=== PATIENT | female | born 1975 | race Caucasian/White ===

== ENCOUNTER 2019-12-07 16:49 | Observation (INO) | payer OTHER, SELFPAY ==
[2019-12-07] MEDS ORDERED: SODIUM CHLORIDE 0.9% IVPB SCH (18:15)
[2019-12-07] MEDS ORDERED: ACYCLOVIR SODIUM IVPB SCH (18:15)
[2019-12-07] MEDS ORDERED: Morphine 4 MG/ML VIAL ONE (18:27)
[2019-12-07] MEDS ORDERED: methylPREDNISolone Sod Succ/PF 125 MG/2 ML VIAL ONE (18:27)
[2019-12-07] MEDS ORDERED: Magnesium 2 GM/50 ML BAG (IN WATER) ONE (18:27)
[2019-12-07] MEDS ORDERED: Acetaminophen 325 MG TAB PO PRN (19:12)
[2019-12-07] MEDS ORDERED: Calcium Carbonate 500 MG ChewTAB PO PRN (19:12)
--- NOTE | 2019-12-07 20:56 | HP ---
PRIMARY CARE PHYSICIAN: None. CHIEF COMPLAINT: Intractable headache. HISTORY OF PRESENT ILLNESS: The patient is a 44-year-old female with a past medical history of asthma and anemia, who presents to the ER for the above complaint. The patient reports that she has had headache for the last 5 days. She describes the headache as located at the front and on the top of her head, it has been constant, increasing in intensity over past several days. She describes the pain as a stabbing, shooting pain with associated nausea and vomiting and photophobia, exacerbated and relieved by nothing. She reports that she has had a headache like this several weeks ago while camping. She reports that she "fell out" while camping. After she regained consciousness, she did not seek any medical treatment and went about her daily life. She is not on any blood thinners. She denies any history of DVT or PE and is not taking any hormone therapy. She denies any history of unintentional weight loss or night sweats. She denies any recent fever or chills. She has no history of any IV drug use or risk for HIV. She denies any focal deficits, urinary retention or ataxia. For the following reasons, she went into the ER in [place]. In [place], the patient's vital signs were stable. EKG was sinus arrythmia, [address] of the brain showed diffuse sulci effacement. Further evaluation by brain MRI is recommended. The patient's white count was 11.2. She had a potassium of 3.3. The patient was given vancomycin and Rocephin and headache protocol of Benadryl, Toradol, Compazine, and morphine and was transferred to the ER in [place]. In the ER in [place], Neurosurgery was consulted to determine if IV steroids were appropriate, which neurosurgery was fine with starting. The patient was given Solu-Medrol 125 mg IV push, was started on acyclovir IV, was given 2 g of Mag and will be admitted to the floor. PAST MEDICAL HISTORY: 1. Asthma. 2. Anemia. PAST SURGICAL HISTORY: 1. Cholecystectomy. 2. x2. SOCIAL HISTORY: The patient lives with her family at home. She drinks alcohol socially. She has no history of smoking or illicit drug use. FAMILY HISTORY: Noncontributory to this case. ALLERGIES: NO KNOWN DRUG ALLERGIES. HOME MEDICATIONS: None. REVIEW OF SYSTEMS: All review of systems are negative unless otherwise stated in the HPI. PHYSICAL EXAMINATION: VITAL SIGNS: Temperature 98.4, blood pressure 153/79, heart rate 95, respirations 20, and 100% on room air. Pain 10/10. CONSTITUTIONAL: The patient is alert and oriented to person, place, and time. She appears uncomfortable, nontoxic in appearance. HEAD: Atraumatic and normocephalic. EYES: PERRLA. Extraocular muscles intact. Sclerae nonicteric. ENT: EACs clear bilaterally. TMs intact bilaterally. Nares patent bilaterally. No rhinorrhea or otorrhea. Oropharynx is clear. Uvula midline. Moist mucous membranes. No oral lesions. NECK: Soft and supple. Trachea midline. No cervical tenderness. No neck stiffness. Full range of motion. No cervical adenopathy. RESPIRATIONS: Respirations are even and nonlabored. No rhonchi, wheezes, or rales. CARDIOVASCULAR: S1 and S2 appreciated. No murmurs, rubs, or gallops. ABDOMEN: Soft and nontender. Active bowel sounds. No guarding. No rigidity. No rebound tenderness. Negative Rovsing sign. Negative Breaux sign. BACK: No central spinous tenderness. No CVA tenderness. Full range of motion. EXTREMITIES: Upper extremities; range of motion normal. Strength normal. Sensation intact. Palpable radial pulses. Lower extremities; full range of motion. Strength normal. Sensation normal. Palpable pedal pulses. No edema. NEUROLOGIC: Cranial nerves 2 through 12 intact. No focal deficits. Normal gait. Negative Kernig sign. Negative Brudzinski sign. PSYCHIATRIC: Normal affect. The patient is alert and oriented to person, place and time. LABS AND DIAGNOSTICS: CT of the brain was positive for diffuse sulcal effacement. Recommended brain MRI as followup. Sodium 141, potassium 3.3, chloride of 111, CO2 of 13, BUN 10, creatinine 0.82, glucose 143. Total bilirubin 0.2, AST 18, ALT 12, alkaline phosphatase 69, albumin 4.6, lipase 4. WBCs were 11.2, hemoglobin 9.1, hematocrit 32.1, and platelets 504. IMPRESSION AND PLAN: 1. Intractable headache. We will admit the patient to medical floor observation status. Expected length of stay less than 2 midnights. The patient presented with an intractable headache x5 days with some nausea, vomiting, and photophobia. The patient was given headache protocol in the ER in [place] with no relief of symptoms. CT was performed and showed diffuse sulcal effacement. Recommend MRI for followup. Neurosurgery was consulted in the ER and recommended steroids ___. The patient has been given vancomycin, Rocephin, and acyclovir IV. The patient is afebrile. We will continue vancomycin, Rocephin, and acyclovir as broad- spectrum coverage until meningitis is ruled out. We will place the patient on contact precautions and droplet precautions until COVID is rule out. COVID results are pending. We will give IV fluids. We will continue analgesic p.r.n. We will consult Neurology. We will perform neuro checks q.4. We will maintain head above bed greater than 30 degrees. We will order an MRI of the brain. 2. Nausea and vomiting, likely related to problem #1. Upon assessment, symptoms were resolved with Zofran. We will continue Zofran p.r.n. 3. Suspected COVID. The patient denies any COVID contacts. COVID test is pending. We will place on droplet precautions. 4. Hypokalemia. The patient presented with a potassium of 3.3, mild. We will continue IV fluids. We will recheck level in the a.m. 5. Asthma. The patient denies any respiratory symptoms, is not in any respiratory distress at this time. We will add p.r.n. medications as needed. 6. Anemia, chronic, appears stable at this time. The patient's hemoglobin was 9.1 and hematocrit was 32.1. We will recheck CBC in the a.m. 7. SCDs for deep venous thrombosis prophylaxis. No pharmacoprophylaxis for DVT. Pepcid for gastrointestinal prophylaxis. The patient is a full code. Discussed the case with Dr. Hale. Job ID: [id number] [facility]
[2019-12-07 21:56] VITALS: BMI 33.0
[2019-12-07] MEDS: Sodium Chloride 0.9% 1,000 ML IV SCH (22:36)
[2019-12-07] MEDS: Famotidine/PF 20 mg/2ml Vial SLOW IVP SCH (22:37)
[2019-12-07] MEDS: Famotidine 20 MG TAB PO SCH (22:37)
[2019-12-07] MEDS: HYDROcodone/Acetaminophen 5/325 mg Tablet PO PRN (22:38)
[2019-12-08] MEDS: Ketorolac Tromethamine 30 MG/ML VIAL IVP PRN ×2 (01:55→08:14)
[2019-12-08] MEDS: Ondansetron ODT 4 MG TAB PO PRN (01:55)
[2019-12-08] MEDS: Vancomycin 1.5 GRAM/300 ML BAG 1.5 GM in Premix Bag 1 BAG IVPB SCH ×2 (03:17→16:56)
[2019-12-08] MEDS: Acyclovir Sodium 570 MG in Sodium Chloride 0.9% 100 ML IVPB SCH ×3 (05:00→21:37)
[2019-12-08 06:50] LABS: #Lymphocytes 0.6 thou/uL (1.20-3.40); #Monocytes 0.2 thou/uL (0.11-0.59); #Neutrophils 7.6 thou/uL (1.40-6.50); %Basophils 0.1 % (0.0-1.0); %Eosinophils 0.1 % (0.0-10.0); %Lymphocytes 6.8 % (21.0-51.0); %Monocytes 2.1 % (0.0-10.0); Hemoglobin 7.6 g/dL (12.0-16.0); Mean Corpuscular HGB CONC 29.9 g/dL (32.0-36.0); Mean Corpuscular Hemoglobin 21.8 pg (27.0-31.0); Mean Corpuscular Volume 72.9 fL (78.0-98.0); Mean Platelet Volume 7.2 fL (7.4-10.4); Platelet Count 405 thou/uL (130-400); Red Blood Cell (RBC) Count 3.49 mill/uL (4.20-5.40); White Blood Cell (WBC) Count 8.4 thou/uL (4.8-10.8)
[2019-12-08 07:05] LABS: Anion Gap 13 mmol/L (10-20); BUN (Urea Nitrogen) 9 mg/dL (7.0-18.7); Calc. Creatinine Clearance 143 mL/min (70-130); Calcium 7.8 mg/dL (7.8-10.44); Carbon Dioxide 15 mmol/L (22-29); Chloride 112 mmol/L (98-107); Estimated GFR-MDRD 87; Glucose 122 mg/dL (70-105); Potassium 3.7 mmol/L (3.5-5.1); Sodium 136 mmol/L (136-145)
[2019-12-08] MEDS ORDERED: cefTRIAXone\\ROCEPHIN 2 GM in Sodium Chloride 0.9% 100 ML IVPB SCH ×2 (07:30→16:00)
[2019-12-08 08:06] LABS: Hypochromia MODERATE=16-30 cells (100X) (0-5/hpf); MDiff Complete? YES; Microcytosis MODERATE=15-30 cells (100X) (0-5/hpf); Ovalocytes SLIGHT = 2-5 cells (100X) (0-1/hpf); Platelet Morphology Comment Appears Increased; Polychromasia SLIGHT = 2-3 cells (100X) (0-2/hpf); Reflex for Review?? NO
[2019-12-08] MEDS: Famotidine/PF 20 mg/2ml Vial SLOW IVP SCH (08:11)
[2019-12-08] MEDS: HYDROcodone/Acetaminophen 5/325 mg Tablet PO PRN ×3 (08:15→17:05)
[2019-12-08] MEDS ORDERED: methylPREDNISolone Sod Succ 40 MG VIAL IVP SCH (09:00)
[2019-12-08] MEDS: Famotidine 20 MG TAB PO SCH (09:36)
[2019-12-08] MEDS ORDERED: Morphine 4 MG/ML VIAL SLOW IVP PRN (10:27)
--- NOTE | 2019-12-08 10:50 | PDOC.HOSPP ---
- Subjective Encounter Date: 12/08/19 (f/u intractable headache) Encounter Time: 10:48 Subjective: Pt reports feeling miserable - nausea, worsening headache pain with any movement. - Objective Vital Signs & Weight: Vital Signs (12 hours) Temp Pulse Resp BP Pulse Ox 12/08/19 08:20 98.5 F 98 20 155/74 H 100 12/08/19 03:00 98.1 F 92 18 142/77 H 99 Weight Weight 198 lb 10.184 oz I&O: 12/07/19 12/08/19 12/09/19 06:59 06:59 06:59 Intake Total 1850 Balance 1850 Result Diagrams: 12/08/19 06:39 12/08/19 06:39 Hospitalist ROS - Medication Medications: Active Medications Generic Name Dose Route Start Last Admin Trade Name Freq PRN Reason Stop Dose Admin Hydrocodone Bitart/Acetaminophen 2 tab 12/07/19 19:12 12/08/19 08:15 [place] 5/325 PO 2 tab Q4H PRN Administration Severe Pain (7-10) Sodium Chloride 1,000 mls @ 75 mls/hr 12/07/19 19:15 12/07/19 22:36 Normal Saline 0.9% IV 1,000 mls .[id number] SAAD Administration Vancomycin HCl 1.5 gm/ Device 300 mls @ 200 mls/hr 12/08/19 04:00 12/08/19 03 :17 IVPB 300 mls 0400,1600 SAAD Administration Acyclovir Sodium 570 mg/ 111.4 mls @ 111.4 mls/hr 12/08/19 06:00 12/08/19 05: 00 Sodium Chloride IVPB 111.4 mls Q8HR SAAD Administration Ketorolac Tromethamine 15 mg 12/07/19 19:23 12/08/19 08:14 Toradol IVP 12/12/19 19:24 15 mg Q6H PRN Administration Moderate Pain (4-6) Methylprednisolone Sodium Succinate 40 mg 12/08/19 09:00 12/08/19 08:10 Solu-Medrol IVP 40 mg DAILY SAAD Administration Ondansetron HCl 4 mg 12/07/19 19:12 12/08/19 01:55 Zofran Odt PO 4 mg Q6H PRN Administration Nausea/Vomiting - Exam General - other findings: appears uncomfortable with ice pack over face Heart: RRR, no murmur Respiratory: CTAB, no wheezes, no rales, no ronchi Gastrointestinal: soft, non-tender, non-distended, normal bowel sounds Extremities: no cyanosis, no clubbing, no edema Neurological: no focal deficits Hosp A/P (1) Cerebral edema Code(s): G93.6 - CEREBRAL EDEMA Status: Acute (2) Intractable headache Code(s): R51 - HEADACHE Status: Acute Qualifiers: Headache type: unspecified Headache chronicity pattern: acute headache Qualified Code(s): R51 - Headache (3) Anemia Code(s): D64.9 - ANEMIA, UNSPECIFIED Status: Chronic Qualifiers: Anemia type: unspecified type Qualified Code(s): D64.9 - Anemia, unspecified (4) Asthma Code(s): J45.909 - UNSPECIFIED ASTHMA, UNCOMPLICATED Status: Chronic - Plan Cerebral edema and intractable headache/n - - Appreciate Neurology consult - obtain recs for managing headache - COVID test pending - MRI delayed until COVID resulted - must be negative for pt to receive this - continue antibiotics and antivirals - continue steroids - morphine dose and frequency adjusted for better pain control Asthma - no signs of exacerbation - prn albuterol Anemia - chronic - obtain type and screen and monitor. Transfuse to maintain >7 dvt prophy - lovenox gi prophy - protonix while on steroids code status full reviewed plan of care with patient, no questions or further needs at end of eval Obtained medications from Neurologist: - solumedrol 1 gram IV Q24h - gabapentin 100 mg TID - compazine 10 mg IV, benadryl 25 mg IV, toradol 15 mg IV - all q6h x 4 doses meds ordered with higher dose of solumedrol to start today.
[2019-12-08] MEDS: Ondansetron PF 4 MG/2 ML Vial IVP PRN ×2 (11:00→17:05)
[2019-12-08] MEDS ORDERED: methylPREDNISolone Sod Succ/PF 125 MG/2 ML VIAL IVP SCH (11:30)
[2019-12-08] MEDS: Sodium Chloride 0.9% 1,000 ML IV SCH ×2 (11:44→23:53)
[2019-12-08] MEDS ORDERED: methylPREDNISolone Sod Succ 1,000 MG in Sodium Chloride 0.9% 100 ML IVPB SCH (12:00)
[2019-12-08] MEDS ORDERED: Ketorolac Tromethamine 30 MG/ML VIAL IVP SCH (12:00)
--- NOTE | 2019-12-08 12:19 | CON ---
NEUROLOGY CONSULTATION DATE OF CONSULTATION: 12/08/2019 REASON FOR CONSULTATION: Intractable headache. HISTORY OF PRESENT ILLNESS: Ms. Petty is a 44-year-old female with history significant for anemia and asthma, presented to the emergency room with severe headache since the last 5 days. The patient describes the headache as severe ice-pick stabbing headache that is located mostly on the top of her head and frontal pain associated with nausea, vomiting, and photophobia. Per the patient, she had headache several weeks ago also while camping. She reports she fell out during camping and did not regain conscious, but she did not come to the ER to get evaluated. The patient denies focal weakness, dizziness, vertigo, loss of consciousness, loss of vision, chest pain, abdominal pain associated with the headache. In the emergency room, head CT was done, which shows diffuse sulcal effacement, concerning for cerebral edema. The patient is currently COVID rule out, so further imaging could not be done. She already received vancomycin and Rocephin to cover for infection, Benadryl, Compazine, Toradol, morphine, but continues to have headache, which she rates it as 10/10, stabbing, ice pick like, not relieved by the current management. REVIEW OF SYSTEMS: All 14 systems were reviewed and were negative except the pertinent positives and negatives mentioned in the HPI. PAST MEDICAL HISTORY: Asthma, anemia. PAST SURGICAL HISTORY: Cholecystectomy, she had section x2. SOCIAL HISTORY: The patient lives at home with family. Drinks alcohol occasionally. Denies smoking, illegal drug use. FAMILY HISTORY: No family history of migraines. ALLERGIES: NO KNOWN DRUG ALLERGIES. HOME MEDICATIONS: None. - Objective Vital Signs & Weight: Vital Signs (12 hours) Temp Pulse Resp BP Pulse Ox 12/08/19 08:20 98.5 F 98 20 155/74 H 100 12/08/19 03:00 98.1 F 92 18 142/77 H 99 Weight Weight 198 lb 10.184 oz I&O: 12/07/19 12/08/19 12/09/19 06:59 06:59 06:59 Intake Total 1850 Balance 1850 Active Medications Generic Name Dose Route Start Last Admin Trade Name Freq PRN Reason Stop Dose Admin Hydrocodone Bitart/Acetaminophen 2 tab 12/07/19 19:12 12/08/19 08:15 [place] 5/325 PO 2 tab Q4H PRN Administration Severe Pain (7-10) Sodium Chloride 1,000 mls @ 75 mls/hr 12/07/19 19:15 12/07/19 22:36 Normal Saline 0.9% IV 1,000 mls .[id number] SAAD Administration Vancomycin HCl 1.5 gm/ Device 300 mls @ 200 mls/hr 12/08/19 04:00 12/08/19 03 :17 IVPB 300 mls 0400,1600 SAAD Administration Acyclovir Sodium 570 mg/ 111.4 mls @ 111.4 mls/hr 12/08/19 06:00 12/08/19 05: 00 Sodium Chloride IVPB 111.4 mls Q8HR SAAD Administration Ketorolac Tromethamine 15 mg 12/07/19 19:23 12/08/19 08:14 Toradol IVP 12/12/19 19:24 15 mg Q6H PRN Administration Moderate Pain (4-6) Methylprednisolone Sodium Succinate 40 mg 12/08/19 09:00 12/08/19 08:10 Solu-Medrol IVP 40 mg DAILY SAAD Administration Ondansetron HCl 4 mg 12/07/19 19:12 12/08/19 01:55 Zofran Odt PO 4 mg Q6H PRN Administration Nausea/Vomiting PHYSICAL EXAMINATION: General - other findings: appears uncomfortable with ice pack over face Heart: RRR, no murmur Respiratory: CTAB, no wheezes, no rales, no ronchi Gastrointestinal: soft, non-tender, non-distended, normal bowel sounds Extremities: no cyanosis, no clubbing, no edema Neurological: Mental status; the patient is alert and oriented to person, place , and time. Speech is clear. Fund of knowledge is appropriate. Recent and remote memory, intact. Cranial nerves 2 through 12 intact. Motor; muscle tone and bulk are normal. Strength 5/5 bilaterally. Sensory intact. Cerebellar, finger-nose testing intact. Gait deferred due to the patient's safety reasons. A/P (1) Cerebral edema Code(s): G93.6 - CEREBRAL EDEMA Status: Acute (2) Intractable headache Code(s): R51 - HEADACHE Status: Acute Qualifiers: Headache type: unspecified Headache chronicity pattern: acute headache Qualified Code(s): R51 - Headache (3) Anemia Code(s): D64.9 - ANEMIA, UNSPECIFIED Status: Chronic Qualifiers: Anemia type: unspecified type Qualified Code(s): D64.9 - Anemia, unspecified (4) Asthma Code(s): J45.909 - UNSPECIFIED ASTHMA, UNCOMPLICATED Status: Chronic DIAGNOSTIC STUDIES: Data reviewed. I reviewed the head CT, which was consistent with diffuse sulcal effacement, consistent with cerebral edema. Labs were essentially unremarkable. ASSESSMENT AND PLAN: Ms. Rosie Anderson is consulted for severe headache. Head CT was reviewed, which was consistent with diffuse sulcal effacement. Followup MRI brain is recommended, which is currently on hold due to COVID rule out until the results are available. Neurosurgery on-board, recommendations appreciated. Consider starting her on the following regimen to see if that will abort the intractable headache. Solu-Medrol 1 g IV q.24 hours, Toradol 15 mg IV q.6 hours, Benadryl 25 mg IV q.6 hours, Compazine 10 mg IV q.6 hours, all IV dosage should be scheduled for the next 24 hours. Consider starting gabapentin 100 mg p.o. t.i.d. for headache prophylaxis. Avoid narcotics as she can develop tolerance and rebound headaches. Neuro checks every 4 hours. Continue medical management per primary team. We will continue to follow. Thank you for the consult. Job ID: [id number] [facility]TDD
[2019-12-08 12:27] LABS: SARS-CoV-2 MS2 Positive; SARS-CoV-2 N Gene Negative; SARS-CoV-2 S Gene Negative; SARS-CoV-2 orf1ab Negative
[2019-12-08] MEDS: diphenhydrAMINE 50 MG/ML VIAL IVP SCH ×3 (12:47→23:54)
[2019-12-08] MEDS: Prochlorperazine Edisylate 10 MG in Sodium Chloride 0.9% 50 ML IVPB SCH ×3 (12:48→23:54)
[2019-12-08] MEDS: methylPREDNISolone Sod Succ 1,000 MG in Sodium Chloride 0.9% 250 ML 250 ML IVPB SCH (13:22)
[2019-12-08] MEDS: Ketorolac Tromethamine 30 MG/ML VIAL IVP SCH ×2 (14:26→19:52)
[2019-12-08] MEDS: Gabapentin 100 MG CAP PO SCH ×2 (14:27→21:37)
--- NOTE | 2019-12-08 14:37 | MRI ---
MRI BRAIN WITH AND WITHOUT IV CONTRAST: HISTORY: Cerebral edema. Abnormal CT scan. Rule out meningitis COMPARISON: None CORRELATION:12/07/2019 FINDINGS: No restricted diffusion is seen. No evidence of infarct, hemorrhage, mass, midline shift or abnormal extra-axial fluid collections is noted. No abnormal postcontrast enhancement is seen. The ventricular size is appropriate and the basilar cisterns are patent. No signal abnormalities are seen on the highly sensitive FLAIR or gradient echo sequences. An empty sella is seen.The visualized paranasal sinuses and mastoid air cells are well aerated. IMPRESSION: No evidence of acute intracranial process or mass.
[2019-12-08] MEDS ORDERED: Magnevist 469MG/ML 20 ML VIAL ONE (16:39)
[2019-12-08] MEDS: cefTRIAXone\\ROCEPHIN 2 GM in Sodium Chloride 0.9% 100 ML IVPB SCH (19:55)
[2019-12-09] MEDS: Ketorolac Tromethamine 30 MG/ML VIAL IVP SCH ×2 (01:56→08:43)
[2019-12-09] MEDS: Vancomycin 1.5 GRAM/300 ML BAG 1.5 GM in Premix Bag 1 BAG IVPB SCH (04:01)
[2019-12-09 04:10] LABS: #Lymphocytes 0.8 thou/uL (1.20-3.40); #Monocytes 0.2 thou/uL (0.11-0.59); #Neutrophils 6.3 thou/uL (1.40-6.50); %Basophils 0.1 % (0.0-1.0); %Eosinophils 0.2 % (0.0-10.0); %Lymphocytes 11.3 % (21.0-51.0); %Monocytes 2.7 % (0.0-10.0); %Neutrophils 85.7 % (42.0-75.0); Hemoglobin 7.4 g/dL (12.0-16.0); Mean Corpuscular HGB CONC 30.8 g/dL (32.0-36.0); Mean Corpuscular Hemoglobin 22.3 pg (27.0-31.0); Mean Corpuscular Volume 72.6 fL (78.0-98.0); Mean Platelet Volume 8.1 fL (7.4-10.4); Platelet Count 380 thou/uL (130-400); RBC Distribution Width 19.2 % (11.5-14.5); Red Blood Cell (RBC) Count 3.32 mill/uL (4.20-5.40); White Blood Cell (WBC) Count 7.4 thou/uL (4.8-10.8)
[2019-12-09 04:30] LABS: Anion Gap 11 mmol/L (10-20); BUN (Urea Nitrogen) 13 mg/dL (7.0-18.7); Calc. Creatinine Clearance 129 mL/min (70-130); Calcium 8.2 mg/dL (7.8-10.44); Carbon Dioxide 18 mmol/L (22-29); Chloride 112 mmol/L (98-107); Estimated GFR-MDRD 78; Glucose 133 mg/dL (70-105); Potassium 3.8 mmol/L (3.5-5.1); Sodium 137 mmol/L (136-145)
[2019-12-09] MEDS: Ondansetron PF 4 MG/2 ML Vial IVP PRN (04:36)
[2019-12-09] MEDS: Prochlorperazine Edisylate 10 MG in Sodium Chloride 0.9% 50 ML IVPB SCH (05:48)
[2019-12-09] MEDS: diphenhydrAMINE 50 MG/ML VIAL IVP SCH (05:49)
[2019-12-09] MEDS ORDERED: Vancomycin 1.5 GRAM/300 ML BAG 1.5 GM in Premix Bag 1 BAG IVPB SCH ×2 (06:00→12:00)
[2019-12-09] MEDS: Acyclovir Sodium 570 MG in Sodium Chloride 0.9% 100 ML IVPB SCH ×2 (06:23→14:45)
[2019-12-09] MEDS: cefTRIAXone\\ROCEPHIN 2 GM in Sodium Chloride 0.9% 100 ML IVPB SCH (08:42)
[2019-12-09] MEDS: Ondansetron ODT 4 MG TAB PO PRN ×3 (08:44→20:53)
[2019-12-09] MEDS: Gabapentin 100 MG CAP PO SCH ×3 (08:45→20:38)
--- NOTE | 2019-12-09 09:17 | PDOC.HOSPP ---
- Subjective Encounter Date: 12/09/19 Encounter Time: 11:30 Subjective: Patient with improvement in headache, down to 4-5/10 from 03/18 yesterday. Best if she lays down, covers her eyes, and doesn't move. Denies focal neuro symptoms. - Objective Vital Signs & Weight: Vital Signs (12 hours) Temp Pulse Resp BP Pulse Ox 12/09/19 04:03 97.9 F 74 20 153/77 H 99 12/08/19 23:48 98.2 F 77 18 150/75 H 97 Weight Weight 198 lb 10.184 oz I&O: 12/08/19 12/09/19 12/10/19 06:59 06:59 06:59 Intake Total 1850 4022 Balance 1850 4022 Result Diagrams: 12/09/19 03:57 12/09/19 03:57 Hospitalist ROS - Review of Systems Constitutional: denies: fever, chills Respiratory: denies: cough, shortness of breath Cardiovascular: denies: chest pain, palpitations Gastrointestinal: denies: nausea, vomiting, abdominal pain Neurological: denies: weakness, numbness, incoordination, change in speech, confusion, seizures - Medication Medications: Active Medications Generic Name Dose Route Start Last Admin Trade Name Freq PRN Reason Stop Dose Admin Hydrocodone Bitart/Acetaminophen 2 tab 12/07/19 19:12 12/08/19 17:05 [place] 5/325 PO 2 tab Q4H PRN Administration Severe Pain (7-10) Gabapentin 100 mg 12/08/19 15:00 12/09/19 08:45 Neurontin PO 100 mg TID SAAD Administration Sodium Chloride 1,000 mls @ 75 mls/hr 12/07/19 19:15 12/08/19 23:53 Normal Saline 0.9% IV 1,000 mls .[id number] SAAD Administration Acyclovir Sodium 570 mg/ 111.4 mls @ 111.4 mls/hr 12/08/19 06:00 12/09/19 06: 23 Sodium Chloride IVPB 111.4 mls Q8HR SAAD Administration Ceftriaxone Sodium 2 gm/ 100 mls @ 200 mls/hr 12/08/19 20:00 12/09/19 08:42 Sodium Chloride IVPB 100 mls 0800,2000 SAAD Administration Methylprednisolone Sodium 266 mls @ 266 mls/hr 12/08/19 12:00 12/08/19 13:22 Succinate 1,000 mg/ Sodium IVPB 266 mls Chloride Q24HR SAAD Administration Morphine Sulfate 2 mg 12/08/19 10:27 12/09/19 04:35 Morphine Sulfate SLOW IVP 2 mg Q2H PRN Administration Moderate Pain (4-6) Ondansetron HCl 4 mg 12/07/19 19:12 12/09/19 08:44 Zofran Odt PO 4 mg Q6H PRN Administration Nausea/Vomiting Ondansetron HCl 4 mg 12/07/19 19:12 12/09/19 04:36 Zofran IVP 4 mg Q6H PRN Administration Nausea/Vomiting Pantoprazole Sodium 40 mg 12/09/19 09:00 12/09/19 08:45 Protonix PO 40 mg DAILY ASAD Administration - Exam General Appearance: NAD, awake alert ENT: moist mucosa Heart: RRR, no murmur, no gallops, no rubs Respiratory: CTAB, no wheezes, no rales, no ronchi Gastrointestinal: soft, non-tender, non-distended, normal bowel sounds Neurological: no focal deficits Psychiatric: normal affect, normal behavior, A&O x 3 Hosp A/P (1) Cerebral edema Code(s): G93.6 - CEREBRAL EDEMA Status: Resolved (2) Intractable headache Code(s): R51 - HEADACHE Status: Acute Qualifiers: Headache type: unspecified Headache chronicity pattern: acute headache Qualified Code(s): R51 - Headache (3) Anemia Code(s): D64.9 - ANEMIA, UNSPECIFIED Status: Chronic Qualifiers: Anemia type: iron deficiency (4) Asthma Code(s): J45.909 - UNSPECIFIED ASTHMA, UNCOMPLICATED Status: Chronic - Plan Cerebral edema and intractable headache - - Appreciate Neurology consult - obtained recs for managing headache - COVID test negative - MRI showing no abnormalities or evidence of cerebral edema - continue antibiotics and antivirals - continue steroids - morphine dose and frequency adjusted for better pain control Asthma - no signs of exacerbation - prn albuterol Anemia - chronic - obtain type and screen and monitor. Transfuse to maintain >7 dvt prophy - lovenox gi prophy - protonix while on steroids code status full Obtained medications from Neurologist: - solumedrol 1 gram IV Q24h - gabapentin 100 mg TID - compazine 10 mg IV, benadryl 25 mg IV, toradol 15 mg IV - all q6h x 4 doses meds ordered with higher dose of solumedrol yesterday. ID consulted to see if concern for infectious eitiology, otherwise most likely complicated migraine
[2019-12-09 10:35] LABS: Iron 11 ug/dL (50-170); Iron Binding Capacity, Total 329 mcg/dL (265-497)
[2019-12-09] MEDS: HYDROcodone/Acetaminophen 5/325 mg Tablet PO PRN ×2 (12:10→17:33)
[2019-12-09] MEDS: methylPREDNISolone Sod Succ 1,000 MG in Sodium Chloride 0.9% 250 ML 250 ML IVPB SCH (12:14)
[2019-12-09] MEDS: Sodium Chloride 0.9% 1,000 ML IV SCH (13:48)
--- NOTE | 2019-12-09 13:48 | PDOC.HOSPP ---
- Subjective Encounter Date: 12/09/19 Subjective: Patient feels better. Headache 5/ but reports confusion. - Objective Vital Signs & Weight: Vital Signs (12 hours) Temp Pulse Resp BP BP Pulse Ox 12/09/19 08:20 97.8 F 74 18 153/81 H 95 12/09/19 04:03 97.9 F 74 20 153/77 H 99 Weight Weight 198 lb 10.184 oz I&O: 12/08/19 12/09/19 12/10/19 06:59 06:59 06:59 Intake Total 1850 4022 Balance 1850 4022 Result Diagrams: 12/09/19 03:57 12/09/19 03:57 Radiology Reviewed by me: Yes EKG Reviewed by me: Yes Hospitalist ROS - Review of Systems Constitutional: denies: fever, chills, sweats, weakness, malaise, other Eyes: denies: pain, vision change, conjunctivae inflammation, eyelid inflammation, redness, other ENT: reports: other (headache). denies: ear pain, ear discharge, nose pain, nose discharge, nose congestion, mouth pain, mouth swelling, throat pain, throat swelling Respiratory: denies: cough, dry, shortness of breath, hemoptysis, SOB with excertion, pleuritic pain, sputum, wheezing, other Cardiovascular: denies: chest pain, palpitations, orthopnea, paroxysmal noc. dyspnea, edema, light headedness, other Gastrointestinal: denies: nausea, vomiting, abdominal pain, diarrhea, constipation, melena, hematochezia, other Genitourinary: denies: dysuria, frequency, incontinence, hematuria, retention, other Musculoskeletal: denies: neck pain, shoulder pain, arm pain, back pain, hand pain, leg pain, foot pain, other Skin: denies: rash, lesions, miriam, bruising, other Neurological: denies: weakness, numbness, incoordination, change in speech, confusion, seizures, other - Medication Medications: Active Medications Generic Name Dose Route Start Last Admin Trade Name Freq PRN Reason Stop Dose Admin Hydrocodone Bitart/Acetaminophen 2 tab 12/07/19 19:12 12/08/19 17:05 [place] 5/325 PO 2 tab Q4H PRN Administration Severe Pain (7-10) Hydrocodone Bitart/Acetaminophen 1 tab 12/07/19 19:12 12/09/19 12:10 [place] 5/325 PO 1 tab Q4H PRN Administration Moderate Pain (4-6) Gabapentin 100 mg 12/08/19 15:00 12/09/19 08:45 Neurontin PO 100 mg TID SAAD Administration Sodium Chloride 1,000 mls @ 75 mls/hr 12/07/19 19:15 12/08/19 23:53 Normal Saline 0.9% IV 1,000 mls .[id number] SAAD Administration Acyclovir Sodium 570 mg/ 111.4 mls @ 111.4 mls/hr 12/08/19 06:00 12/09/19 06: 23 Sodium Chloride IVPB 111.4 mls Q8HR SAAD Administration Ceftriaxone Sodium 2 gm/ 100 mls @ 200 mls/hr 12/08/19 20:00 12/09/19 08:42 Sodium Chloride IVPB 100 mls 0800,2000 SAAD Administration Methylprednisolone Sodium 266 mls @ 266 mls/hr 12/08/19 12:00 12/09/19 12:14 Succinate 1,000 mg/ Sodium IVPB 266 mls Chloride Q24HR SAAD Administration Vancomycin HCl 1.5 gm/ Device 300 mls @ 200 mls/hr 12/09/19 12:00 12/09/19 12 :09 IVPB 300 mls 0400,1200,2000 SAAD Administration Morphine Sulfate 2 mg 12/08/19 10:27 12/09/19 04:35 Morphine Sulfate SLOW IVP 2 mg Q2H PRN Administration Moderate Pain (4-6) Ondansetron HCl 4 mg 12/07/19 19:12 12/09/19 08:44 Zofran Odt PO 4 mg Q6H PRN Administration Nausea/Vomiting Ondansetron HCl 4 mg 12/07/19 19:12 12/09/19 04:36 Zofran IVP 4 mg Q6H PRN Administration Nausea/Vomiting Pantoprazole Sodium 40 mg 12/09/19 09:00 12/09/19 08:45 Protonix PO 40 mg DAILY SAAD Administration - Exam General Appearance: awake alert Eye: PERRL ENT: normocephalic atraumatic Neck: supple Heart: RRR Respiratory: CTAB Gastrointestinal: soft Extremities: no cyanosis Skin: normal turgor Neurological: cranial nerve grossly intact, normal sensation to touch, no weakness, no focal deficits, no new deficit Musculoskeletal: normal tone, normal strength, no muscle wasting Psychiatric: normal affect, normal behavior, A&O x 3, oriented to person, oriented to place, oriented to time Hosp A/P (1) Intractable headache Code(s): R51 - HEADACHE Status: Acute Qualifiers: Headache type: unspecified Headache chronicity pattern: acute headache Qualified Code(s): R51 - Headache (2) Anemia Code(s): D64.9 - ANEMIA, UNSPECIFIED Status: Chronic Qualifiers: Anemia type: iron deficiency - Plan 44 year old with intractable headache improving with current regimen. Continue current regimen. Continue home medications. MRI Brain reviewed and was negative for acute intracranial pathology. EEG ongoing for confusion. Will follow up on results. ID input pending. Continue medical management per primary team.
[2019-12-09] MEDS: Senokot S 8.6-50 MG TAB PO PRN (17:36)
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
[2019-12-09] MEDS ORDERED: Polyethylene Glycol 3350 17 GM Packet PO SCH (22:45)
[2019-12-09] MEDS: Zolpidem Tartrate 5 MG TAB PO PRN (23:47)
[2019-12-10] MEDS: Sodium Chloride 0.9% 1,000 ML IV SCH ×2 (01:40→15:59)
[2019-12-10] MEDS: Ondansetron ODT 4 MG TAB PO PRN (04:46)
[2019-12-10] MEDS: HYDROcodone/Acetaminophen 5/325 mg Tablet PO PRN ×3 (07:25→16:00)
[2019-12-10] MEDS: Gabapentin 100 MG CAP PO SCH ×3 (07:25→22:39)
[2019-12-10] MEDS: Ondansetron PF 4 MG/2 ML Vial IVP PRN ×3 (09:47→21:25)
[2019-12-10] MEDS: Senokot S 8.6-50 MG TAB PO PRN ×2 (09:57→22:39)
[2019-12-10] MEDS: methylPREDNISolone Sod Succ 1,000 MG in Sodium Chloride 0.9% 250 ML 250 ML IVPB SCH (11:37)
--- NOTE | 2019-12-10 11:59 | PDOC.HOSPP ---
- Subjective Subjective: Patient seen and examined bedside this morning resting in bed in no acute distress, still complaining of headache 4 out of 10 she also complained of no bowel movement for over an 7 days now but denies any nausea or vomiting she remained afebrile overnight - Objective Vital Signs & Weight: Vital Signs (12 hours) Temp Pulse Resp BP BP BP Pulse Ox 12/10/19 08:00 98.2 F 68 20 147/82 H 98 12/10/19 07:20 98.2 F 68 20 147/82 H 98 12/10/19 04:30 98.2 F 82 17 151/83 H 97 12/10/19 00:15 98.1 F 75 17 133/77 99 Weight Weight 198 lb 10.184 oz I&O: 12/09/19 12/10/19 12/11/19 06:59 06:59 06:59 Intake Total 4022 1480 Balance 4022 1480 Result Diagrams: 12/09/19 03:57 12/09/19 03:57 Hospitalist ROS - Medication Medications: Active Medications Generic Name Dose Route Start Last Admin Trade Name Freq PRN Reason Stop Dose Admin Hydrocodone Bitart/Acetaminophen 2 tab 12/07/19 19:12 12/10/19 11:43 [place] 5/325 PO 2 tab Q4H PRN Administration Severe Pain (7-10) Hydrocodone Bitart/Acetaminophen 1 tab 12/07/19 19:12 12/09/19 17:33 [place] 5/325 PO 1 tab Q4H PRN Administration Moderate Pain (4-6) Gabapentin 100 mg 12/08/19 15:00 12/10/19 07:25 Neurontin PO 100 mg TID SAAD Administration Sodium Chloride 1,000 mls @ 75 mls/hr 12/07/19 19:15 12/10/19 01:40 Normal Saline 0.9% IV 1,000 mls .[id number] SAAD Administration Methylprednisolone Sodium 266 mls @ 266 mls/hr 12/08/19 12:00 12/10/19 11:37 Succinate 1,000 mg/ Sodium IVPB 266 mls Chloride Q24HR SAAD Administration Morphine Sulfate 2 mg 12/08/19 10:27 12/10/19 09:48 Morphine Sulfate SLOW IVP 2 mg Q2H PRN Administration Moderate Pain (4-6) Ondansetron HCl 4 mg 12/07/19 19:12 12/10/19 04:46 Zofran Odt PO 4 mg Q6H PRN Administration Nausea/Vomiting Ondansetron HCl 4 mg 12/07/19 19:12 12/10/19 09:47 Zofran IVP 4 mg Q6H PRN Administration Nausea/Vomiting Pantoprazole Sodium 40 mg 12/09/19 09:00 12/10/19 07:25 Protonix PO 40 mg DAILY SAAD Administration Senna/Docusate Sodium 2 tab 12/07/19 19:12 12/10/19 09:57 Senokot S PO 2 tab BIDPRN PRN Administration Constipation Zolpidem Tartrate 10 mg 12/09/19 22:45 12/09/19 23:47 Ambien PO 10 mg HSPRN PRN Administration .SLEEP - Exam General Appearance: NAD, awake alert Eye: PERRL, anicteric sclera ENT: normocephalic atraumatic Neck: supple Heart: RRR Respiratory: CTAB Gastrointestinal: soft, non-tender Extremities: no cyanosis Musculoskeletal: normal tone Psychiatric: normal affect Hosp A/P (1) Intractable headache Code(s): R51 - HEADACHE Status: Acute Qualifiers: Headache type: unspecified Headache chronicity pattern: acute headache Qualified Code(s): R51 - Headache (2) Chronic anemia Code(s): D64.9 - ANEMIA, UNSPECIFIED Status: Chronic - Plan Cerebral edema and intractable headache - - Appreciate Neurology consult - obtained recs for managing headache - COVID test negative - MRI showing no abnormalities or evidence of cerebral edema - continue steroids - morphine dose and frequency adjusted for better pain control -Follow-up and EEG results and follow-up further neurology recommendations -Appreciate infectious disease input no signs for antimicrobial or antibiotics at this point on vacs has been discontinued Asthma - no signs of exacerbation - prn albuterol Anemia - chronic - obtain type and screen and monitor. Transfuse to maintain >7 dvt prophy - lovenox gi prophy - protonix while on steroids code status full Obtained medications from Neurologist: - solumedrol 1 gram IV Q24h - gabapentin 100 mg TID - compazine 10 mg IV, benadryl 25 mg IV, toradol 15 mg IV - all q6h x 4 doses Constipation: Continue with daily MiraLAX Disposition depending on clinical improvement hopefully home in the next 24 hours
[2019-12-10 12:59] LABS: Anion Gap 12 mmol/L (10-20); BUN (Urea Nitrogen) 12 mg/dL (7.0-18.7); Calc. Creatinine Clearance 137 mL/min (70-130); Carbon Dioxide 20 mmol/L (22-29); Chloride 111 mmol/L (98-107); Estimated GFR-MDRD 83; Glucose 129 mg/dL (70-105); Potassium 3.7 mmol/L (3.5-5.1); Sodium 139 mmol/L (136-145)
[2019-12-10 13:05] LABS: #Monocytes 0.7 thou/uL (0.11-0.59); #Neutrophils 6.9 thou/uL (1.40-6.50); %Basophils 0.1 % (0.0-1.0); %Eosinophils 0.3 % (0.0-10.0); %Lymphocytes 11.4 % (21.0-51.0); %Monocytes 8.1 % (0.0-10.0); Anisocytosis SLIGHT = 6-15 cells (100X) (0-5/hpf); Hemoglobin 7.6 g/dL (12.0-16.0); Hypochromia SLIGHT = 6-15 cells (100X) (0-5/hpf); MDiff Complete? YES; Mean Corpuscular Hemoglobin 22.2 pg (27.0-31.0); Mean Platelet Volume 7.4 fL (7.4-10.4); Microcytosis SLIGHT = 6-15 cells (100X) (0-5/hpf); Platelet Count 453 thou/uL (130-400); Platelet Morphology Comment Appears Increased; Polychromasia SLIGHT = 2-3 cells (100X) (0-2/hpf); RBC Distribution Width 19.2 % (11.5-14.5); Red Blood Cell (RBC) Count 3.41 mill/uL (4.20-5.40); Schistocytes SLIGHT = 2-5 cells (100X) (0-1/hpf); Target Cells SLIGHT = 2-5 cells (100X) (0-1/hpf); Tear Drops SLIGHT = 2-5 cells (100X) (0-1/hpf); White Blood Cell (WBC) Count 8.6 thou/uL (4.8-10.8)
--- NOTE | 2019-12-10 13:28 | PDOC.HOSPP ---
- Subjective Encounter Date: 12/10/19 Subjective: NEUROLOGY PROGRESS NOTE Patient feels better. Headache 3.5/10 . Confusion resolved. EEG did not show any seizure activity. - Objective Vital Signs & Weight: Vital Signs (12 hours) Temp Pulse Resp BP BP BP Pulse Ox 12/10/19 08:00 98.2 F 68 20 147/82 H 98 12/10/19 07:20 98.2 F 68 20 147/82 H 98 12/10/19 04:30 98.2 F 82 17 151/83 H 97 Weight Weight 198 lb 10.184 oz I&O: 12/09/19 12/10/19 12/11/19 06:59 06:59 06:59 Intake Total 4022 1480 Balance 4022 1480 Result Diagrams: 12/10/19 12:28 12/10/19 12:28 Radiology Reviewed by me: Yes EKG Reviewed by me: Yes Hospitalist ROS - Review of Systems Constitutional: denies: fever, chills, sweats, weakness, malaise, other Eyes: denies: pain, vision change, conjunctivae inflammation, eyelid inflammation, redness, other ENT: denies: ear pain, ear discharge, nose pain, nose discharge, nose congestion , mouth pain, mouth swelling, throat pain, throat swelling, other Respiratory: denies: cough, dry, shortness of breath, hemoptysis, SOB with excertion, pleuritic pain, sputum, wheezing, other Cardiovascular: denies: chest pain, palpitations, orthopnea, paroxysmal noc. dyspnea, edema, light headedness, other Gastrointestinal: denies: nausea, vomiting, abdominal pain, diarrhea, constipation, melena, hematochezia, other Genitourinary: denies: dysuria, frequency, incontinence, hematuria, retention, other Musculoskeletal: reports: other (HEADACHE) Skin: denies: rash, lesions, miriam, bruising, other Neurological: denies: weakness, numbness, incoordination, change in speech, confusion, seizures, other - Medication Medications: Active Medications Generic Name Dose Route Start Last Admin Trade Name Freq PRN Reason Stop Dose Admin Hydrocodone Bitart/Acetaminophen 2 tab 12/07/19 19:12 12/10/19 11:43 [place] 5/325 PO 2 tab Q4H PRN Administration Severe Pain (7-10) Hydrocodone Bitart/Acetaminophen 1 tab 06/30/20 19:12 12/09/19 17:33 [place] 5/325 PO 1 tab Q4H PRN Administration Moderate Pain (4-6) Gabapentin 100 mg 12/08/19 15:00 12/10/19 07:25 Neurontin PO 100 mg TID SAAD Administration Sodium Chloride 1,000 mls @ 75 mls/hr 12/07/19 19:15 12/10/19 01:40 Normal Saline 0.9% IV 1,000 mls .[id number] SAAD Administration Methylprednisolone Sodium 266 mls @ 266 mls/hr 12/08/19 12:00 12/10/19 11:37 Succinate 1,000 mg/ Sodium IVPB 266 mls Chloride Q24HR SAAD Administration Morphine Sulfate 2 mg 12/08/19 10:27 12/10/19 09:48 Morphine Sulfate SLOW IVP 2 mg Q2H PRN Administration Moderate Pain (4-6) Ondansetron HCl 4 mg 12/07/19 19:12 12/10/19 04:46 Zofran Odt PO 4 mg Q6H PRN Administration Nausea/Vomiting Ondansetron HCl 4 mg 12/07/19 19:12 12/10/19 09:47 Zofran IVP 4 mg Q6H PRN Administration Nausea/Vomiting Pantoprazole Sodium 40 mg 12/09/19 09:00 12/10/19 07:25 Protonix PO 40 mg DAILY SAAD Administration Senna/Docusate Sodium 2 tab 12/07/19 19:12 12/10/19 09:57 Senokot S PO 2 tab BIDPRN PRN Administration Constipation Zolpidem Tartrate 10 mg 12/09/19 22:45 12/09/19 23:47 Ambien PO 10 mg HSPRN PRN Administration .SLEEP - Exam General Appearance: awake alert Eye: PERRL ENT: normocephalic atraumatic Neck: supple Heart: RRR Respiratory: CTAB Gastrointestinal: soft Extremities: no cyanosis Skin: normal turgor Neurological: cranial nerve grossly intact, normal sensation to touch, no weakness, no focal deficits, no new deficit Musculoskeletal: normal tone, normal strength, no muscle wasting Psychiatric: normal affect, normal behavior, A&O x 3, oriented to person, oriented to place, oriented to time Hosp A/P (1) Intractable headache Code(s): R51 - HEADACHE Status: Acute Qualifiers: Headache type: unspecified Headache chronicity pattern: acute headache Qualified Code(s): R51 - Headache (2) Anemia Code(s): D64.9 - ANEMIA, UNSPECIFIED Status: Chronic Qualifiers: Anemia type: iron deficiency - Plan 44 year old with intractable headache improving with current regimen. Continue Gabapentin 100 mg tid. Continue home medications. MRI Brain reviewed and was negative for acute intracranial pathology or signs of cerebral edema. Steroids discontinued. EEG reviewed which was negative for seizure activity. ID input appreciated. Antibiotics were discontinued. Continue medical management per primary team. Plan discussed in detail with the patient.
[2019-12-10] MEDS ORDERED: Magnesium Citrate 300 ML BOT PO SCH (19:15)
[2019-12-10] MEDS: Zolpidem Tartrate 5 MG TAB PO PRN (22:39)
[2019-12-11] MEDS: HYDROcodone/Acetaminophen 5/325 mg Tablet PO PRN ×4 (00:42→14:13)
[2019-12-11] MEDS: Sodium Chloride 0.9% 1,000 ML IV SCH ×2 (04:09→15:46)
[2019-12-11] MEDS: Ondansetron PF 4 MG/2 ML Vial IVP PRN ×2 (04:10→10:25)
[2019-12-11] MEDS: Senokot S 8.6-50 MG TAB PO PRN (06:18)
[2019-12-11] MEDS: Gabapentin 100 MG CAP PO SCH ×2 (07:48→14:13)
[2019-12-11 12:21] VITALS: BP 161/83; TEMP 97.7
[2019-12-11] MEDS: methylPREDNISolone Sod Succ 1,000 MG in Sodium Chloride 0.9% 250 ML 250 ML IVPB SCH (12:49)
--- NOTE | 2019-12-12 01:49 | DIS ---
DATE OF ADMISSION: 12/07/2019 DATE OF DISCHARGE: 12/11/2019 HOSPITAL COURSE: Ms. Anderson is a 44-year-old female, with a medical history of asthma and anemia, who presented with headache. She has had the headache for a few days, diffuse, bilateral, throbbing, pulsating, associated with photophobia and phonophobia. She was diagnosed with migraine headaches based on ICHD-3 criteria. As an inpatient, she was treated with opioids and steroids and her headache improved. She was discharged on ibuprofen p.r.n., sumatriptan p.r.n., and Reglan p.r.n. with specific instructions on when to use each. On the day of discharge, her headaches have significantly improved. She was hemodynamically stable. PHYSICAL EXAMINATION: VITAL SIGNS: Blood pressure 161/83; temperature 97.7; pulse 50, she was sleeping at that time; respiratory rate 20; and oxygen saturation 100% on room air. GENERAL: Lying comfortably in bed and appears in no distress. HEENT: Eye exam, PERRL and anicteric sclerae. ENT, normocephalic and atraumatic. HEART: Regular rhythm, bradycardic. No murmur or rubs. LUNGS: Clear to auscultation bilaterally. No wheezing, rales, or rhonchi. GI: Soft, nontender, and nondistended. Normal bowel sounds. EXTREMITIES: No edema. MUSCULOSKELETAL: Normal tone. PSYCHIATRIC: Proper mood and affect. Alert and oriented x3. MEDICATION LIST: New medications: 1. Ibuprofen 600 mg p.o. one tablet p.r.n. headaches, to take immediately with onset of headache. 2. Sumatriptan 50 mg p.o. q.2 hours p.r.n., if ibuprofen did not resolve the headache, maximum dose of 200 mg in 24 hours. 3. Reglan 10 mg p.o. one time p.r.n. headache, nausea, vomiting. 4. The patient was scheduled with an outpatient appointment to be established considering the patient has no PCP. Job ID: [id number]
--- NOTE | 2019-12-13 10:44 | EEG ---
DATE OF SERVICE: 12/09/2019 ATTENDING PHYSICIAN: Darlene Astorga MD This EEG was performed using 24-channel [employer] video digital EEG machine with 24-disk electrodes. This was an extended 2-hour 10-minute of inpatient video EEG recording. Digital analysis of the EEG was done for spike and seizure detection, which revealed no abnormalities. BACKGROUND: The posterior background rhythm is 9 to 10 Hz. The background rhythm attenuates with eye opening and enhances with eye closure. HYPERVENTILATION: Not performed. PHOTIC STIMULATION: Not performed. SLEEP: Drowsiness and sleep are observed. EEG DIAGNOSIS: Normal awake, drowsy, and sleep EEG. Job ID: [id number]
== END 2019-12-11 16:37 | disposition home or self-care (01) ==
LOC: ERS 16:49 → T4-B 18:27 → INTOOBSV 18:27
PROVIDERS: ADMIT Family Medicine; ATTEND Family Medicine
DX: G43.919 Migraine, unspecified, intractable, without status migrainosus (principal); E87.6 Hypokalemia; J45.909 Unspecified asthma, uncomplicated; D50.9 Iron deficiency anemia, unspecified; K59.00 Constipation, unspecified; R11.2 Nausea with vomiting, unspecified; R50.9 Fever, unspecified; Z20.828 Contact with and (suspected) exposure to other viral communicable diseases; Z91.410 Personal history of adult physical and sexual abuse; Z91.041 Radiographic dye allergy status
CPT/HCPCS: 36415; 70553; 80048; 80202; 82728; 83540; 83550; 83735; 85025; 85652; 86140; 87635; 93005; 95712; 95816; 95819; 95957; 96361; 96365; 96366; 96367; 96375; 96376; A9579; G0378; J0133; J0696; J0780; J1200; J1885; J2270; J2405; J2920; J2930; J3370; J3475; J3490; J7050; Q0162; S0028; U0003

== ENCOUNTER 2021-06-18 10:07 | Emergency (ER) | payer OTHER, SELFPAY ==
[2021-06-18 10:56] LABS: Hemoglobin 8.5 g/dL (12.0-16.0); Mean Corpuscular HGB CONC 31.3 g/dL (32.0-36.0); Mean Corpuscular Hemoglobin 22.5 pg (27.0-31.0); Mean Corpuscular Volume 71.9 fL (78.0-98.0); Mean Platelet Volume 7.5 fL (7.4-10.4); Platelet Count 400 thou/uL (130-400); RBC Distribution Width 17.5 % (11.5-14.5); Red Blood Cell (RBC) Count 3.77 mill/uL (4.20-5.40); White Blood Cell (WBC) Count 3.6 thou/uL (4.8-10.8)
[2021-06-18 11:11] LABS: ALT (SGPT) 21 U/L (8-55); AST (SGOT) 32 U/L (5-34); Albumin 4.1 g/dL (3.5-5.0); Alkaline Phosphatase 67 U/L (40-110); Anion Gap 15 mmol/L (10-20); BUN (Urea Nitrogen) 13 mg/dL (7.0-18.7); Bilirubin, Total 0.3 mg/dL (0.2-1.2); Calc. Creatinine Clearance 0 mL/min (70-130); Calcium 9.4 mg/dL (7.8-10.44); Carbon Dioxide 22 mmol/L (22-29); Chloride 103 mmol/L (98-107); Globulin 3.8 g/dL (2.4-3.5); Glucose 99 mg/dL (70-105); Potassium 3.6 mmol/L (3.5-5.1); Protein, Total 7.9 g/dL (6.0-8.3); Sodium 136 mmol/L (136-145)
[2021-06-18 11:35] LABS: Band 10 % (5-11); Hypochromia SLIGHT = 6-15 cells (100X) (0-5/hpf); Lymphocytes 25 % (21-51); MDiff Complete? YES; Microcytosis MODERATE=15-30 cells (100X) (0-5/hpf); Monocytes 24 % (0-10); Neutrophil 40 % (42-75); Platelet Morphology Comment Appears Adequate; Polychromasia SLIGHT = 2-3 cells (100X) (0-2/hpf)
[2021-06-18] MEDS ORDERED: Ketorolac Tromethamine 30 MG/ML VIAL ONE (12:10)
[2021-06-18] MEDS ORDERED: diphenhydrAMINE 50 MG/ML VIAL ONE (12:10)
[2021-06-18] MEDS ORDERED: Metoclopramide HCl 10 MG/2 ML VIAL ONE (12:11)
[2021-06-18] MEDS ORDERED: methylPREDNISolone Sod Succ/PF 125 MG/2 ML VIAL ONE (12:11)
[2021-06-18] MEDS ORDERED: Morphine 4 MG/ML VIAL ONE ×3 (12:11→17:09)
[2021-06-18] MEDS ORDERED: Ketamine 50 MG/ML (10ML VIAL) ONE (13:09)
[2021-06-18] MEDS ORDERED: Ondansetron PF 4 MG/2 ML Vial ONE ×2 (14:10→17:09)
[2021-06-18 16:59] LABS: SARS-CoV-2 NAA Rapid Test DETECTED (NotDetected)
== END 2021-06-18 17:23 | disposition home or self-care (01) ==
LOC: ERS 10:07
DX: U07.1 COVID-19 (principal); G43.819 Other migraine, intractable, without status migrainosus; M32.9 Systemic lupus erythematosus, unspecified; J45.909 Unspecified asthma, uncomplicated; D64.9 Anemia, unspecified; F17.210 Nicotine dependence, cigarettes, uncomplicated
CPT/HCPCS: 36415; 70450; 71045; 80053; 83880; 84484; 85025; 93005; 96365; 96375; 96376; J1200; J1885; J2270; J2405; J2765; J2930; U0002